=== PATIENT | female | born 1970 | race Caucasian/White ===

== ENCOUNTER 2017-10-28 05:50 | Day surgery (SDC) | payer OTHER ==
[~2017-10-28] VITALS: Ht 165.1 cm; Wt 95.3 kg
[2017-10-28] MEDS ORDERED: ELA25 PO (06:57)
[2017-10-28] MEDS ORDERED: GABA400C PO (06:57)
[2017-10-28] MEDS ORDERED: LISI5TAB18 PO (06:57)
[2017-10-28] MEDS ORDERED: CYCL10TA13 PO (06:57)
[2017-10-28] MEDS ORDERED: DULO60EC PO (06:57)
[2017-10-28 07:04] LABS: BASOPHILS # (AUTO) 0.1 K/uL (0.00-0.22); BASOPHILS % (AUTO) 1.2 % (0.0-2.0); EOSINOPHILS # (AUTO) 0.1 K/uL (0-0.4); EOSINOPHILS % (AUTO) 1.4 % (0.0-4.0); HEMATOCRIT 43.1 % (36-48); HEMOGLOBIN 14.4 g/dL (12.0-16.0); LYMPHOCYTES # (AUTO) 1.7 K/uL (2.5-16.5); LYMPHOCYTES % (AUTO) 21.7 % (20.5-51.1); MEAN CORPUSCULAR HEMOGLOBIN 29 pg (27-31); MEAN CORPUSCULAR HGB CONC 34 g/dL (33-37); MEAN CORPUSCULAR VOLUME 88 fL (80-94); MONOCYTES # (AUTO) 0.7 K/uL (0.8-1.0); MONOCYTES % (AUTO) 8.3 % (1.7-9.3); NEUTROPHILS # (AUTO) 5.3 K/uL (1.8-7.7); NEUTROPHILS % (AUTO) 67.4 % (42.2-75.2); PLATELET COUNT (AUTO) 237 K/uL (140-450); RED BLOOD CELL COUNT(AUTO) 4.92 MIL/uL (4.20-5.40)
[2017-10-28 07:24] LABS: CARBON DIOXIDE 29.6 mmol/L (21-32); CREATININE 1.1 mg/dL (0.6-1.3); POTASSIUM 4.6 mmol/L (3.5-5.1)
[2017-10-28 07:30] LABS: ALBUMIN 3.6 g/dL (3.4-5.0); BILIRUBIN,DIRECT 0.1 mg/dL (0.0-0.3); TOTAL BILIRUBIN 0.4 mg/dL (0.0-1.0)
[2017-10-28] MEDS ORDERED: LIDOCAINE 2% 1000 MG/50 ML VIAL INJ ONE (07:35)
[2017-10-28 07:37] LABS: WHITE BLOOD COUNT (AUTO) 7.9 K/uL (4.8-10.8)
[2017-10-28 07:38] LABS: PROTHROMBIN TIME 9.9 secs (10.8-13.4)
[2017-10-28] MEDS ORDERED: fentaNYL 0.05 MG/ML VIAL ONE (08:04)
[2017-10-28] MEDS ORDERED: MIDAZOLAM 2 MG/2 ML VIAL ONE (08:05)
== END 2017-10-28 09:25 | disposition home or self-care (01) ==
LOC: MDS 05:50 → MMU 06:00 → MDS 09:25
PROVIDERS: ATTEND Internal Medicine Gastroenterology
DX: K76.0 Fatty (change of) liver, not elsewhere classified (principal); E66.09 Other obesity due to excess calories; I10 Essential (primary) hypertension; M79.7 Fibromyalgia; J45.909 Unspecified asthma, uncomplicated; Z68.35 Body mass index [BMI] 35.0-35.9, adult; Z79.899 Other long term (current) drug therapy; Z98.890 Other specified postprocedural states; Z90.49 Acquired absence of other specified parts of digestive tract
CPT/HCPCS: 36415; 47000; 71010; 76942; 80053; 80076; 84702; 85025; 85610; 85730; 88307; 88313; 93005; J2001; J2250; J3010; J7120; Q0092